=== PATIENT | female | born 1960 | race Caucasian/White ===

== ENCOUNTER 2017-02-12 20:12 | Emergency (ER) | payer OTHER ==
[~2017-02-12] VITALS: Ht 152.4 cm; Wt 87.0 kg
[~2017-02-12 20:12] MED LIST: ASPI-664 PO; HYD25 PO
[2017-02-12 20:17] VITALS: Ht 152.4 cm; Wt 87.0 kg
[2017-02-12] MEDS ORDERED: ACETAMINOPHEN 500 MG TAB PO STA (20:32)
[2017-02-12] MEDS ORDERED: HYD25 PO (20:34)
--- NOTE | 2017-02-12 20:40 | ERD ---
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 The patient presents with elevated blood pressure and headache for approximately 3 days. She states in the past she has been told she has elevated blood pressure but has not been started on blood pressure medications. Occasionally it is normal but at home usually in the 130s systolic. Over the last several days the patient has noted gradual onset frontal throbbing headache that is dull and nonradiating. No slurred speech, no motor weakness, no chest pain or shortness of breath. The patient is noted that her blood pressures been elevated over this timeframe. No njyj-[id number] medications. No recent social stressors. ROS All systems reviewed and are negative except as per history of present illness. Medications Home Meds Active Scripts Hydrochlorothiazide* (Hydrochlorothiazide*) 25 Mg Tab, 25 MG PO DAILY, #30 TAB Prov:DAMARI PRASAD MD 02/12/17 Aspirin* (Aspirin* EC) 81 Mg Tablet.dr, 81 MG PO DAILY, #30 TAB Prov:DAMARI PRASAD MD 07/19/16 Hydrochlorothiazide* (Hydrochlorothiazide*) 25 Mg Tab, 25 MG PO DAILY, #30 TAB Prov:DAMARI PRASAD MD 07/19/16 Allergies Allergies: Coded Allergies: No Known Allergy (Unverified , 07/19/16) PMhx/Soc History of Surgery: No Anesthesia Reaction: No Hx Neurological Disorder: No Hx Respiratory Disorders: No Hx Cardiac Disorders: No Hx Psychiatric Problems: No Hx Miscellaneous Medical Probl: No Hx Alcohol Use: No Hx Substance Use: No Hx Tobacco Use: No FmHx Family History: No diabetes Physical Exam Vitals Vital Signs Date Time Temp Pulse Resp B/P Pulse Ox O2 Delivery O2 Flow Rate FiO2 02/12/17 20:17 98.6 85 20 206/91 98 Physical Exam General: Well developed, well nourished, no acute distress Head: Normocephalic, atraumatic. Eyes: Pupils equally reactive, EOM intact ENT: Moist mucous membranes Neck: Supple, no lymphadenopathy Respiratory: Lungs clear bilaterally, no distress Cardiovascular: RRR, no murmurs, rubs, or gallops Abdominal: Soft, non-tender, non-distended, no peritoneal signs : Deferred MSK: No edema, no unilateral swelling, 5/5 strength Neurologic: Alert and oriented, moving all extremities, normal speech, no focal weakness, no cerebellar signs, steady gait, no pronator drift Skin: No rash Psych: Normal mood Results 24 hrs Current Medications Medications (Trade) Dose Ordered Sig/Puma Route PRN Reason Start Time Stop Time Status Last Admin Dose Admin Nicardipine HCl (Cardene) 30 mg ONCE ONCE PO 02/12/17 21:00 02/12/17 21:01 Acetaminophen (Tylenol Tab) 1,000 mg ONCE STAT PO 02/12/17 20:32 02/12/17 20:33 DC Procedures/MDM Patient's blood pressure was elevated (>120/80) but appears stable without evidence of hypertensive emergency or urgency. The patient was counseled about the risks of hypertension and urged to pursue outpatient monitoring and therapy within a week with their primary care physician. While the patient does have a headache this is most consistent with elevated hypertension. She has no signs or symptoms concerning for endorgan dysfunction. No evidence of stroke or intracranial hemorrhage. The patient's headache is unlikely related to serious etiology. The patient does not exhibit any clinical signs or symptoms, and has no risk factors to suggest headache etiology such as subarachnoid hemorrhage, acute vertebral or carotid dissection, intracranial mass, epidural, subdural hematoma, dural venous sinus thrombosis, giant cell arteritis, or pseudotumor cerebri. I do not believe the patient requires CT imaging of the brain at this time. The patient will be given p.o. Cardene here in the emergency room and Tylenol. The patient has improved blood pressure during this timeframe. She continues to be well-appearing and asymptomatic. At this time I believe initiation of a low-dose hydrochlorothiazide once daily would be reasonable initiation of antihypertensive medication. The patient can be safely discharged with close primary care follow-up for further testing. I discussed keeping a blood pressure log, stopping medication if she becomes lightheaded or becomes hypotensive. We discussed follow up with the patient's primary care doctor within 24 to 48 hours as needed. We also discussed return to the emergency room for worsening symptoms or worsening condition. Outpatient referral: None required Discharge Medications: Hydrochlorothiazide 25 mg once daily Departure Diagnosis: Primary Impression: Essential hypertension Additional Impression: Asymptomatic hypertension Condition: Stable Patient Instructions: Hypertension, New (Begin Treatment) Referrals: [facility] ([facility] Usted se pérez hecho un examen mdico de control que le indica que no est en sophia condicin que requiera tratamiento urgente en el Departamento de Emergencia. Un estudio ms profundo y el tratamiento de bennett condicin pueden esperar sin ningn riesgo hasta que usted sea atendida/o en el consultorio de bennett mdico o sophia cl shama. Es responsabilidad suya arreglar sophia terry para el seguimiento del carmencita. MANEJO DE CONDICIONES NO URGENTES EN EL FUTURO 1) Si usted tiene un mdico de atencin primaria: Usted debera llamar a bennett mdico de atencin primaria antes de venir al departamento de emergencia. Despus de las horas de consultorio, bennett doctor o bennett asociado/a est disponible por telfono. El mdico o enfermero de zane en el servicio telefnico puede asesorarle por herrera medio para atender el problema, o carmencita contrario se puede programar sophia terry. 2) Si usted no tiene un mdico de atencin primaria: Llame al mdico o clnica de referencia que aparece abajo yuriy las horas de consultorio para hacer sophia terry para que le vean. CLINICAS: [facility] [phone] [address] [facility] [phone] [facility] [phone] [facility] [phone] [address] [facility] [phone] [address] [facility] [phone] [facility] () Usted se pérez hecho un examen mdico de control que le indica que no est en sophia condicin que requiera tratamiento urgente en el Departamento de Emergencia. Un estudio ms profundo y el tratamiento de bennett condicin pueden esperar sin ningn riesgo hasta que usted sea atendida/o en el consultorio de bennett mdico o sophia cl shama. Es responsabilidad suya arreglar sophia terry para el seguimiento del carmencita. MANEJO DE CONDICIONES NO URGENTES EN EL FUTURO 1) Si usted tiene un mdico de atencin primaria: Usted debera llamar a bennett mdico de atencin primaria antes de venir al departamento de emergencia. Despus de las horas de consultorio, bennett doctor o bennett asociado/a est disponible por telfono. El mdico o enfermero de zane en el servicio telefnico puede asesorarle por herrera medio para atender el problema, o carmencita contrario se puede programar sophia terry. 2) Si usted no tiene un mdico de atencin primaria: Llame al mdico o condado institucions de referencia que aparece abajo yuriy las horas de consultorio para hacer sophia terry para que le vean. SI USTED NO PUEDE PAGAR PARA JESSICA UN MEDICO puede ir a: [facility] [address] [place] [address] [facility] [address] [place] [address] [facility] [address] [place] [address] [facility] [address] [place], [place] [id number] Additional Instructions: Llame al doctor nombrado abajo (Referral Sources) MAANA y randy sophia TERRY PARA DENTRO DE SOPHIA SEMANA. Dgale a la secretaria que nosotros le instruimos hacer esta terry.Avise o llame si bennett condicin se empeora antes de la terry. DAMARI PRASAD MD Feb 12, 2017 20:40
[2017-02-12] MEDS ORDERED: NICARDipine HCL 30 MG CAPSULE PO ONE (21:00)
[2017-02-12 21:17] VITALS: BP 186/85; PULSE 68; RESP 16
== END 2017-02-12 21:33 | disposition home or self-care (01) ==
LOC: E/R 20:12
DX: I10 Essential (primary) hypertension (principal); E11.9 Type 2 diabetes mellitus without complications; Z79.82 Long term (current) use of aspirin
CPT/HCPCS: 99283